=== PATIENT | female | born 1995 | race Asian ===

== ENCOUNTER 2016-06-27 19:37 | Emergency (ER) | payer MEDICAID ==
[~2016-06-27] VITALS: Ht 165.1 cm; Wt 59.9 kg
[2016-06-27 19:41] VITALS: BP 129/74
== END 2016-06-27 20:05 | disposition home or self-care (01) ==
LOC: ER 19:41
DX: S09.90XA Unspecified injury of head, initial encounter (principal); S30.0XXA Contusion of lower back and pelvis, initial encounter; V43.62XA Car passenger injured in collision with other type car in traffic accident, initial encounter; Y93.89 Activity, other specified; Y92.413 State road as the place of occurrence of the external cause; Y99.8 Other external cause status
CPT/HCPCS: A4606; Z7610